=== PATIENT | male | born 1965 | race Caucasian/White ===

== ENCOUNTER 2016-10-27 12:07 | Outpatient (CLI) | payer BC ==
[~2016-10-27] VITALS: Ht 175.3 cm; Wt 93.0 kg
[~2016-10-27 12:07] MED LIST: AQUAOIN2 EX; BACT2OIN10 TOP; IBUP-1022 PO; LIDOCAINE 2% INJ 100 MG/5 ML SDV (FOR ANES.) As Ordered ONE; METF500T13 PO; NS 1,000 ML IV ONE; PROPOFOL 200 MG/20 ML VIAL As Ordered ONE; TYLE325T5 PO; [UNRECOGNIZED DRUG - OTHER] TOP
--- NOTE | 2016-10-27 13:14 | ROOR ---
Patient Name: Lei Tang Procedure Date: 10/27/2016 12:57 PM Date of : 1965 Age: 51 Room: [facility] Gender: Male Note Status: Finalized Procedure: Total Colonoscopy to Cecum + Cold Snare Polypectomy Indications: Screening for colorectal malignant neoplasm Providers: Gordon Valera MD Referring MD: PRASAD CORBIN MD Requesting Provider: Medicines: Monitored Anesthesia Care Complications: No immediate complications. Procedure: Pre-Anesthesia Assessment: - The heart rate, respiratory rate, oxygen saturations, blood pressure, adequacy of pulmonary ventilation, and response to care were monitored throughout the procedure. The Colonoscope was introduced through the anus and advanced to the cecum, identified by appendiceal orifice and ileocecal valve. The colonoscopy was performed without difficulty. The patient tolerated the procedure well. The quality of the bowel preparation was excellent. Findings: The perianal and digital rectal examinations were normal. Non-bleeding internal hemorrhoids were found during retroflexion. The hemorrhoids were small and Grade I (internal hemorrhoids that do not prolapse). A small polyp was found in the rectum. The polyp was sessile. The polyp was removed with a cold snare. Resection and retrieval were complete. Multiple small and large-mouthed diverticula were found in the recto-sigmoid colon, sigmoid colon and descending colon. The exam was otherwise without abnormality on direct and retroflexion views. Impression: - Non-bleeding internal hemorrhoids. - One small polyp in the rectum, removed with a cold snare. Resected and retrieved. - Diverticulosis in the recto-sigmoid colon, in the sigmoid colon and in the descending colon. - The examination was otherwise normal on direct and retroflexion views. - The exam was otherwise normal to the cecum. Recommendation: - Patient has a contact number available for emergencies. The signs and symptoms of potential delayed complications were discussed with the patient. Return to normal activities tomorrow. Written discharge instructions were provided to the patient. - High fiber diet. - Discharge patient to home. - Continue present medications. - Await pathology results. - Telephone GI clinic for pathology results in 1 week. - Repeat colonoscopy in 5 years for surveillance. - Return to referring physician. - The findings and recommendations were discussed with the patient's family. Augie Valera MD Augie Valera MD 10/27/2016 1:14:19 PM This report has been signed electronically. Number of Addenda: 0 Note Initiated On: 10/27/2016 12:57 PM Estimated Blood Loss: Estimated blood loss: none.
[2016-10-27 13:30] VITALS: BP 183/92
== END 2016-10-27 13:45 | disposition home or self-care (01) ==
LOC: M OPP 12:07
PROVIDERS: ATTEND Internal Medicine Gastroenterology
DX: Z12.11 Encounter for screening for malignant neoplasm of colon (principal); K62.1 Rectal polyp; K64.0 First degree hemorrhoids; K57.30 Diverticulosis of large intestine without perforation or abscess without bleeding; E11.9 Type 2 diabetes mellitus without complications; I10 Essential (primary) hypertension; L40.9 Psoriasis, unspecified; R21 Rash and other nonspecific skin eruption; R06.83 Snoring; Z88.0 Allergy status to penicillin; Z88.8 Allergy status to other drugs, medicaments and biological substances; Z91.040 Latex allergy status; Z79.84 Long term (current) use of oral hypoglycemic drugs; Z79.899 Other long term (current) drug therapy; Z87.891 Personal history of nicotine dependence

== ENCOUNTER → 2017-08-19 | Outpatient (REF) | payer BC ==
[2017-08-20 08:28] LABS: TOTAL PROTEIN,RANDOM URINE < 5.0 MG/DL (0.0-12.0); URINE TOTAL PROTEIN < 5.0 MG/DL (0-12)
[2017-08-20 08:35] LABS: IMMUNOGLOBULIN G 737 MG/DL (681-1648); IMMUNOGLOBULIN M 50.3 MG/DL (40-230); TOTAL PROTEIN 7.5 GM/DL (6.4-8.2)
[2017-08-20 12:33] LABS: ALBUMIN 4.66 GM/DL (3.29-5.55); ALBUMIN % 62.1 % (55.8-66.1); ALPHA-1-GLOBULIN % 3.8 % (2.9-4.9); ALPHA-1-GLOBULINS 0.29 GM/DL (0.17-0.41); ALPHA-2-GLOBULINS 0.75 GM/DL (0.42-0.99); BETA-1-GLOBULINS 0.51 GM/DL (0.28-0.60); BETA-1-GLOBULINS % 6.8 % (4.7-7.2); BETA-2-GLOBULINS 0.47 GM/DL (0.19-0.55); BETA-2-GLOBULINS % 6.3 % (3.2-6.5); GAMMA GLOBULINS 0.83 GM/DL (0.65-1.58)
[2017-08-20 15:58] LABS: UPEP INTERPRETATION NO M-SPIKE NOTED; URINE VOLUME RANDOM ML
[2017-08-22 00:08] LABS: FREE KAPPA LIGHT CHAINS SERUM 15.5 mg/L (3.3-19.4); FREE LAMBDA LIGHT CHAINS SERUM 16.2 mg/L (5.7-26.3); KAPPA/LAMBDA RATIO SERUM 0.96 (0.26-1.65)
== END ==
LOC: M LAB REF 08-20 07:40
DX: Z00.00 Encounter for general adult medical examination without abnormal findings (principal)
CPT/HCPCS: 84165

== ENCOUNTER → 2021-08-20 | Outpatient (REF) | payer BC ==
[~2021-08-20] MED LIST changes: -LIDOCAINE 2% INJ 100 MG/5 ML SDV (FOR ANES.) As Ordered ONE; -NS 1,000 ML IV ONE; -PROPOFOL 200 MG/20 ML VIAL As Ordered ONE; +VALS160T2 PO; +VITA1CHW12 PO; +VITA500055 PO
== END ==
LOC: M SFHCDERM 14:11
PROVIDERS: ATTEND Physician Assistant
DX: L82.1 Other seborrheic keratosis (principal)

== ENCOUNTER → 2024-04-11 | Outpatient (REF) | payer BC, OTHER | LOC: M LAB REF 12:49 | PROVIDERS: ATTEND Otolaryngology | DX: K12.0 Recurrent oral aphthae (principal) ==

== ENCOUNTER → 2025-01-02 | Outpatient (REF) | payer BC, OTHER ==
[~2025-01-02] MED LIST changes: -IBUP-1022 PO; +IBUP600T42 PO
== END ==
LOC: M SFHCDERM 17:26
PROVIDERS: ATTEND Physician Assistant
DX: L82.1 Other seborrheic keratosis (principal)